=== PATIENT | female | born 1970 | race Caucasian/White ===

== ENCOUNTER 2017-05-29 10:26 | Day surgery (SDC) | payer OTHER ==
[2017-05-29 10:56] VITALS: BMI 32.2
[2017-05-29 11:33] VITALS: O2SAT 100
[2017-05-29] MEDS ORDERED: Propofol 10 mg/ml Inj (20 ML) ONE (14:15)
[2017-05-29 15:02] VITALS: TEMP 98.3
[2017-05-29 15:18] VITALS: RESP 17
[2017-05-29 15:39] VITALS: BP 119/73; PULSE 62
== END 2017-05-29 15:52 | disposition home or self-care (01) ==
LOC: C.ENDO 10:26
PROVIDERS: ATTEND Internal Medicine
DX: K64.8 Other hemorrhoids (principal); Z87.19 Personal history of other diseases of the digestive system
CPT/HCPCS: 45378; 84703; J2704

== ENCOUNTER 2017-06-09 07:29 | Day surgery (SDC) | payer OTHER ==
[2017-06-09] MEDS ORDERED: Lidocaine 1%/Epinephrine 1:100000 30 ml vial IJ ONE (07:30)
[2017-06-09] MEDS: Bupivacaine HCl 0.25% PF (10 ml) Inj ONE ×2 (08:50→09:44)
[2017-06-09] MEDS: Lidocaine/Epinephrine 1% 1:100000 10 ML IJ ONE ×2 (08:51→09:44)
[2017-06-09] MEDS: ceFAZolin IV 2 gm in Dextrose 2 GM/50 ML BAG IVPB ONE ×2 (08:51→09:35)
[2017-06-09] MEDS ORDERED: metroNIDAZOLE IV 500 mg/100 ml 500 MG/100 ML BAG ONE (08:55)
[2017-06-09] MEDS ORDERED: Midazolam 2 MG/2 ML VIAL ONE (09:21)
[2017-06-09] MEDS ORDERED: Propofol 10 mg/ml Inj (20 ML) ONE (09:22)
[2017-06-09] MEDS ORDERED: HYDROmorphone 0.5 mg/0.5 ml ISec IVP PRN (10:14)
--- NOTE | 2017-06-09 10:17 | PCM.SURG1 ---
Surgeon's Initial Post Op Note - Surgeon's Notes Surgeon: Dr. Hopkins Saturator Operator: Rosalinda [id number], Pedro CHOI Type of Anesthesia: General LMA Anesthesia Administered By: Dr. Stevenson Pre-Operative Diagnosis: Anal polyp Operative Findings: see operative report Post-Operative Diagnosis: Anal polyp, hemorrhoid Operation Performed: Anal polypectomy, Hemorroidectomy Specimen/Specimens Removed: Anal polyp, hemorrhoid Estimated Blood Loss: EBL {In ML}: 20 Blood Products Given: N/A Drains Used: No Drains Post-Op Condition: Good Date of Surgery/Procedure: 06/09/17 Time of Surgery/Procedure: 09:30
[2017-06-09] MEDS ORDERED: Oxycodone/Acetaminophen 5/325 mg Tab PO PRN (10:18)
--- NOTE | 2017-06-09 11:12 | OP ---
PROCEDURE DATE: 06/09/2017 PREOPERATIVE DIAGNOSIS: Anal polyp. POSTOPERATIVE DIAGNOSIS: Anal polyp. PROCEDURE DONE: 1. Examination under anesthesia. 2. Anal polypectomy. SURGEON: Procedure was done by Alpesh tenorio MD. [employer]: Sameer Gu, PGY-1 resident. TYPE OF ANESTHESIA: General anesthesia with LMA. ESTIMATED BLOOD LOSS: Around 20 mL. DRAIN: None. PATHOLOGY: Anal polyp was sent for the pathology. COMPLICATIONS: None. INTRAOPERATIVE FINDINGS: The patient had pedunculated polyp originating from the anal mucosa. DESCRIPTION OF PROCEDURE: On intraoperative steps, this is a 47-year-old female who was diagnosed with anal polyp and the patient was consented for anal polypectomy. The patient was brought to the OR, placed supine on the operating table. After induction of the anesthesia, the patient was placed in lithotomy position. The perineal area was prepped and draped in the usual sterile fashion and examination under anesthesia was done. The patient had a grade II hemorrhoid and the patient also had pedunculated polyp of approximately 2 x 2 cm and approximately 4 cm long and elliptical incision was made surrounding the mucosa. The incision was carried deep into the muscularis plane and the whole polyp was resected and the wound was closed in 2 layer, the mucosa with 3-0 Vicryl and another layer of the mucosa with 2-0 Vicryl continuous sutures and Surgicel packing was placed and dry sterile dressing was applied. The patient tolerated the procedure well. Count of the instrument and gauze was correct. There was no apparent complication. The patient was extubated in the OR, sent to the Postanesthesia Care Unit in stable condition. Alpesh Hopkins MD
[2017-06-09] MEDS ORDERED: Lactated Ringer's 1,000 ML IV ONE (11:15)
[2017-06-09 11:35] VITALS: O2SAT 100
[2017-06-09 17:32] VITALS: BP 105/56; PULSE 55; RESP 16; TEMP 97.5
== END 2017-06-09 16:40 | disposition home or self-care (01) ==
LOC: C.SDS 07:29
PROVIDERS: ATTEND Surgery Surgical Critical Care
DX: K62.0 Anal polyp (principal)
CPT/HCPCS: 46922; 88305; J0690; J1170; J1885; J2250; J2405; J2704; J3010; J7120